=== PATIENT | male | born 1995 | race African-American/Black ===

== ENCOUNTER 2019-11-25 00:42 | Emergency (ER) | payer MEDICAID, OTHER ==
[~2019-11-25] VITALS: Ht 167.6 cm; Wt 54.5 kg
[2019-11-25 04:15] VITALS: BP 120/79
[2019-11-25] MEDS ORDERED: LORazepam 1 MG TABLET PO ONE (04:45)
== END 2019-11-25 05:23 | disposition home or self-care (01) ==
LOC: EMS 00:42
DX: F10.129 Alcohol abuse with intoxication, unspecified (principal); F12.90 Cannabis use, unspecified, uncomplicated; F17.210 Nicotine dependence, cigarettes, uncomplicated; Y90.9 Presence of alcohol in blood, level not specified

== ENCOUNTER 2020-07-07 04:14 | Emergency (ER) | payer SELFPAY ==
[~2020-07-07] VITALS: Ht 170.2 cm; Wt 52.3 kg
[2020-07-07 05:54] LABS: BASOPHILS % (AUTO) 0.3 % (0.0-2.0); EOSINOPHILS % (AUTO) 0.9 % (1.0-6.0); HEMATOCRIT 41.6 % (41-53); HEMOGLOBIN 14.4 g/dL (13.5-17.5); LYMPHOCYTES # (AUTO) 1.5 K/uL (1.0-4.8); LYMPHOCYTES % (AUTO) 47.2 % (22.0-44.0); MEAN CORPUSCULAR HEMOGLOBIN 34.6 pg (26.0-34.0); MEAN CORPUSCULAR HGB CONC 34.7 G/dL (31.0-37.0); MEAN CORPUSCULAR VOLUME 100 fL (80-100); MONOCYTES # (AUTO) 0.3 K/uL (0.1-1.0); MONOCYTES % (AUTO) 11.1 % (2.0-9.0); NEUTROPHILS # (AUTO) 1.3 K/uL (1.8-7.7); NEUTROPHILS % (AUTO) 40.5 % (40.0-70.0); PLATELET COUNT (AUTO) 251 K/uL (150-450); RED BLOOD CELL COUNT(AUTO) 4.18 MIL/uL (4.50-5.90); RED CELL DISTRIBUTION WIDTH 14.5 % (11.5-14.5)
[2020-07-07 05:55] LABS: ALANINE AMINOTRANSFERASE 62 U/L (12-78); ALBUMIN 4.7 g/dL (3.4-5.0); ALKALINE PHOSPHATASE 62 U/L (46-116); ANION GAP 6 mmol/L (8-16); ASPARTATE AMINOTRANSFERASE 83 U/L (15-37); CALCIUM, TOTAL 9.1 mg/dL (8.8-10.5); CARBON DIOXIDE 34 mmol/L (22-29); CHLORIDE 101 mmol/L (98-107); CREATININE 1.01 mg/dL (0.60-1.30); GLOMERULAR FILTR. RATE CALC > 60 mL/min (>60); GLUCOSE,RANDOM 111 mg/dL (70-110); POTASSIUM 3.3 mmol/L (3.5-5.1); SODIUM SERUM 141 mmol/L (136-145); UREA NITROGEN, BLOOD 5 mg/dL (7-18)
[2020-07-07 05:56] LABS: AMPHET/METH SCREEN,URINE POSITIVE (NEGATIVE); BARBITURATE SCREEN, URINE NEGATIVE (NEGATIVE); BENZODIAZEPINES SCREEN,URINE NEGATIVE (NEGATIVE); CANNABINOID SCREEN,URINE POSITIVE (NEGATIVE); COCAINE SCREEN,URINE NEGATIVE (NEGATIVE); METHADONE SCREEN, URINE NEGATIVE (NEGATIVE); OPIATE SCREEN,URINE NEGATIVE (NEGATIVE)
[2020-07-07 06:07] LABS: PHENCYCLIDINE SCREEN,URINE NEGATIVE (NEGATIVE)
[2020-07-07 08:47] VITALS: BP 129/70
== END 2020-07-07 09:23 | disposition home or self-care (01) ==
LOC: EMS 04:14
DX: F15.10 Other stimulant abuse, uncomplicated (principal); F12.90 Cannabis use, unspecified, uncomplicated; F17.210 Nicotine dependence, cigarettes, uncomplicated
CPT/HCPCS: 36415; 80053; 80307; 85025; 99283; G0480

== ENCOUNTER 2022-02-27 16:59 | Inpatient (IN) | payer MEDICAID, OTHER ==
[~2022-02-27] VITALS: Ht 165.1 cm; Wt 51.7 kg
[2022-02-27] MEDS ORDERED: LORazepam 2 MG TABLET PO PRN (20:00)
[2022-02-27] MEDS ORDERED: ZOLPIDEM TARTRATE 10 MG TABLET PO PRN (20:00)
[2022-02-27] MEDS ORDERED: OLANZapine 5 MG RAPDIS TABLET PO PRN (20:00)
[2022-02-27 20:05] LABS: COVID AG,FIA SOURCE NASOPHARYNGEAL
[2022-02-27 20:47] LABS: BASOPHILS % (AUTO) 1.6 % (0.0-2.0); EOSINOPHILS % (AUTO) 1.5 % (1.0-6.0); HEMATOCRIT 41.8 % (41-53); HEMOGLOBIN 14.7 g/dL (13.5-17.5); LYMPHOCYTES # (AUTO) 1.6 K/uL (1.0-4.8); LYMPHOCYTES % (AUTO) 53.2 % (22.0-44.0); MEAN CORPUSCULAR HEMOGLOBIN 34.5 pg (26.0-34.0); MEAN CORPUSCULAR HGB CONC 35.2 G/dL (31.0-37.0); MEAN CORPUSCULAR VOLUME 98 fL (80-100); MONOCYTES # (AUTO) 0.2 K/uL (0.1-1.0); MONOCYTES % (AUTO) 7.6 % (2.0-9.0); NEUTROPHILS # (AUTO) 1.1 K/uL (1.8-7.7); NEUTROPHILS % (AUTO) 36.1 % (40.0-70.0); PLATELET COUNT (AUTO) 141 K/uL (150-450); RED BLOOD CELL COUNT(AUTO) 4.27 MIL/uL (4.50-5.90); RED CELL DISTRIBUTION WIDTH 15.8 % (11.5-14.5)
[2022-02-27 20:48] LABS: ANION GAP 13 mmol/L (8-16); CALCIUM, TOTAL 9.1 mg/dL (8.8-10.5); CARBON DIOXIDE 27 mmol/L (22-29); CHLORIDE 96 mmol/L (98-107); CREATININE 0.94 mg/dL (0.60-1.30); GLOMERULAR FILTR. RATE CALC > 60 mL/min (>60); GLUCOSE,RANDOM 117 mg/dL (70-110); POTASSIUM 4.1 mmol/L (3.5-5.1); SODIUM SERUM 136 mmol/L (136-145); UREA NITROGEN, BLOOD 8 mg/dL (7-18)
[2022-02-27 20:54] LABS: ALANINE AMINOTRANSFERASE 523 U/L (12-78); ALBUMIN 3.9 g/dL (3.4-5.0); ALKALINE PHOSPHATASE 173 U/L (46-116); ASPARTATE AMINOTRANSFERASE 864 U/L (15-37); BILIRUBIN,TOTAL 1.2 mg/dL (0.1-1.0); TOTAL PROTEIN, SERUM 7.5 g/dL (6.4-8.2)
[2022-02-27 21:01] LABS: APPEARANCE,URINE CLEAR (CLEAR); BILIRUBIN,URINE NEGATIVE (NEGATIVE); GLUCOSE, URINE (UA) NEGATIVE (NEGATIVE); KETONES,URINE NEGATIVE (NEGATIVE); LEUKOCYTE ESTERASE ,URINE NEGATIVE (NEGATIVE); NITRATE,URINE NEGATIVE (NEGATIVE); OCCULT BLOOD,URINE SMALL (NEGATIVE); PH,URINE 5.5 (5.0-8.0); PROTEIN,URINE NEGATIVE (NEGATIVE); SPECIFIC GRAVITIY, URINE 1.019 (1.003-1.030); UROBILINOGEN,URINE <=1.0 mg/dL (<=1.0)
[2022-02-27 21:09] LABS: AMPHET/METH SCREEN,URINE NEGATIVE (NEGATIVE); BARBITURATE SCREEN, URINE NEGATIVE (NEGATIVE); BENZODIAZEPINES SCREEN,URINE NEGATIVE (NEGATIVE); CANNABINOID SCREEN,URINE NEGATIVE (NEGATIVE); COCAINE SCREEN,URINE NEGATIVE (NEGATIVE); METHADONE SCREEN, URINE NEGATIVE (NEGATIVE); OPIATE SCREEN,URINE NEGATIVE (NEGATIVE); PHENCYCLIDINE SCREEN,URINE NEGATIVE (NEGATIVE)
[2022-02-27 21:15] LABS: BACTERIA,URINE None Seen /HPF (None Seen); RBC,URINE 0-2 /HPF (0-2); WBC,URINE None Seen /HPF (0-5)
[2022-02-28] VITALS (9 sets, daily range): BP systolic 108–123; BP diastolic 66–82
[2022-02-28] MEDS ORDERED: MAGNESIUM HYDROXIDE SUSPENSION 30 ML UDCUP PO PRN (10:00)
[2022-02-28] MEDS ORDERED: HydrOXYzine PAMOATE 50 MG CAPSULE PO PRN (10:00)
[2022-02-28] MEDS ORDERED: LOPERAMIDE HCL 2 MG CAPSULE PO PRN (10:00)
[2022-02-28] MEDS ORDERED: CYANOCOBALAMIN 1,000 MCG/ML VIAL IM ONE (10:00)
[2022-02-28] MEDS ORDERED: MAG HYDROX/AL HYDROX/SIMETH ES 30 ML SUSPENSION UDCUP PO PRN (10:00)
[2022-02-28] MEDS ORDERED: ACETAMINOPHEN 325 MG TABLET PO PRN (10:00)
[2022-02-28] MEDS ORDERED: PROMETHAZINE HCL 25 MG TABLET PO PRN (10:00)
[2022-02-28] MEDS ORDERED: TUBERCULIN, PURIFIED PROTEIN DERIVATIVE 5 TU/0.1 ML SYRINGE ID ONE (10:00)
[2022-02-28] MEDS ORDERED: GuaiFENesin/D-METHORPHAN [SUGAR-FREE] 200-20MG/10 ML SYRUP UDCUP PO PRN (10:00)
[2022-02-28] MEDS ORDERED: LORazepam 2 MG TABLET PO PRN (10:00)
[2022-02-28] MEDS: THIAMINE 100 MG TABLET PO SCH (16:35)
[2022-02-28] MEDS: MELATONIN 5 MG TABLET PO SCH (20:28)
[2022-02-28] MEDS ORDERED: MIRTAZAPINE 15 MG TABLET PO SCH (21:00)
[2022-03-01] VITALS (10 sets, daily range): BP systolic 110–117; BP diastolic 66–79
[2022-03-01] MEDS ORDERED: LORazepam 2 MG TABLET PO PRN (07:00)
[2022-03-01] MEDS: NALTREXONE HCL 50 MG TABLET PO SCH (09:23)
[2022-03-01] MEDS: THIAMINE 100 MG TABLET PO SCH ×2 (09:23→17:15)
[2022-03-01] MEDS: MULTIVITAMINS WITH MINERALS, THERAPEUTIC TABLET PO SCH (09:23)
[2022-03-01] MEDS: FOLIC ACID 1 MG TABLET PO SCH (09:24)
[2022-03-01] MEDS: LORazepam 2 MG TABLET PO SCH ×4 (09:24→20:26)
[2022-03-01] MEDS: OMEGA-3/DHA/EPA/FISH OIL 1,000 MG CAPSULE PO SCH (09:24)
[2022-03-01] MEDS: MIRTAZAPINE 30 MG TABLET PO SCH (20:26)
[2022-03-01] MEDS: MELATONIN 5 MG TABLET PO SCH (20:26)
[2022-03-02] VITALS: BP 105/75
[2022-03-02 08:11] LABS: BASOPHILS % (AUTO) 0.7 % (0.0-2.0); EOSINOPHILS % (AUTO) 1.4 % (1.0-6.0); HEMATOCRIT 39.6 % (41-53); HEMOGLOBIN 13.4 g/dL (13.5-17.5); LYMPHOCYTES # (AUTO) 1.4 K/uL (1.0-4.8); LYMPHOCYTES % (AUTO) 39.5 % (22.0-44.0); MEAN CORPUSCULAR HGB CONC 33.8 G/dL (31.0-37.0); MEAN CORPUSCULAR VOLUME 101 fL (80-100); MONOCYTES # (AUTO) 0.4 K/uL (0.1-1.0); NEUTROPHILS # (AUTO) 1.6 K/uL (1.8-7.7); NEUTROPHILS % (AUTO) 46.4 % (40.0-70.0); PLATELET COUNT (AUTO) 123 K/uL (150-450); RED BLOOD CELL COUNT(AUTO) 3.94 MIL/uL (4.50-5.90); RED CELL DISTRIBUTION WIDTH 16.1 % (11.5-14.5)
[2022-03-02 08:20] VITALS: BP 94/54
[2022-03-02 08:22] LABS: HEMOGLOBIN A1C 5.6 % (3.8-5.6)
[2022-03-02 08:42] LABS: ALANINE AMINOTRANSFERASE 306 U/L (12-78); ALBUMIN 3.5 g/dL (3.4-5.0); ALKALINE PHOSPHATASE 148 U/L (46-116); ANION GAP 10 mmol/L (8-16); ASPARTATE AMINOTRANSFERASE 229 U/L (15-37); BILIRUBIN,TOTAL 0.7 mg/dL (0.1-1.0); CALCIUM, TOTAL 9.2 mg/dL (8.8-10.5); CARBON DIOXIDE 31 mmol/L (22-29); CHLORIDE 103 mmol/L (98-107); CHOL/HDL RATIO 2.6 (4.2-7.3); CHOLESTEROL 169 mg/dL (131-200); CREATININE 0.75 mg/dL (0.60-1.30); FREE T4 (FREE THYROXINE) 0.73 ng/dL (0.76-1.46); GLOMERULAR FILTR. RATE CALC > 60 mL/min (>60); GLUCOSE,RANDOM 98 mg/dL (70-110); HDL CHOLESTEROL 66 mg/dL (40-60); LDL CHOL (CALC.) 86 mg/dL (0-130); SODIUM SERUM 144 mmol/L (136-145); THYROID STIMULATING HORMONE 3.33 uIU/mL (0.36-3.74); TOTAL PROTEIN, SERUM 6.8 g/dL (6.4-8.2); TRIGLYCERIDES 83 mg/dL (15-150); UREA NITROGEN, BLOOD 10 mg/dL (7-18)
[2022-03-02] MEDS: OMEGA-3/DHA/EPA/FISH OIL 1,000 MG CAPSULE PO SCH (09:30)
[2022-03-02] MEDS: MULTIVITAMINS WITH MINERALS, THERAPEUTIC TABLET PO SCH (09:30)
[2022-03-02] MEDS: FOLIC ACID 1 MG TABLET PO SCH (09:30)
[2022-03-02] MEDS: NALTREXONE HCL 50 MG TABLET PO SCH (09:30)
[2022-03-02] MEDS: THIAMINE 100 MG TABLET PO SCH ×2 (09:30→16:33)
[2022-03-02] MEDS: LORazepam 2 MG TABLET PO SCH ×4 (09:30→20:35)
[2022-03-02 16:31] VITALS: BP 103/63
[2022-03-02 20:15] VITALS: BP 108/71
[2022-03-02] MEDS: MELATONIN 5 MG TABLET PO SCH (20:35)
[2022-03-02] MEDS: MIRTAZAPINE 30 MG TABLET PO SCH (20:35)
[2022-03-03 05:30] VITALS: BP 111/62
[2022-03-03] MEDS ORDERED: LORazepam 1 MG TABLET PO PRN (07:00)
[2022-03-03 08:08] LABS: ALBUMIN 3.4 g/dL (3.4-5.0); BILIRUBIN,DIRECT 0.2 mg/dL (0.00-0.20); BILIRUBIN,TOTAL 0.7 mg/dL (0.1-1.0); TOTAL PROTEIN, SERUM 6.9 g/dL (6.4-8.2)
[2022-03-03 08:18] VITALS: BP 112/77
[2022-03-03] MEDS: MULTIVITAMINS WITH MINERALS, THERAPEUTIC TABLET PO SCH (08:22)
[2022-03-03] MEDS: OMEGA-3/DHA/EPA/FISH OIL 1,000 MG CAPSULE PO SCH (08:22)
[2022-03-03] MEDS: FOLIC ACID 1 MG TABLET PO SCH (08:22)
[2022-03-03] MEDS: NALTREXONE HCL 50 MG TABLET PO SCH (08:22)
[2022-03-03] MEDS: THIAMINE 100 MG TABLET PO SCH ×2 (08:22→17:03)
[2022-03-03] MEDS: LORazepam 1 MG TABLET PO SCH ×4 (08:22→20:20)
[2022-03-03] MEDS ORDERED: LORazepam 0.5 MG TABLET PO PRN (14:30)
[2022-03-03 16:22] VITALS: BP 114/66
[2022-03-03] MEDS: NICOTINE 14 MG/24 HOUR PATCH TD SCH (19:30)
[2022-03-03] MEDS: MELATONIN 5 MG TABLET PO SCH (20:20)
[2022-03-03] MEDS: MIRTAZAPINE 30 MG TABLET PO SCH (20:23)
[2022-03-04 06:06] LABS: HEPATITIS A ANTIBODY TOTAL Positive (Negative); HEPATITIS C AB (EIA) <0.1 s/co ratio (0.0-0.9)
[2022-03-04 06:19] VITALS: BP 112/72
[2022-03-04] MEDS ORDERED: LORazepam 1 MG TABLET PO PRN (07:00)
[2022-03-04] MEDS: MULTIVITAMINS WITH MINERALS, THERAPEUTIC TABLET PO SCH (08:09)
[2022-03-04] MEDS: OMEGA-3/DHA/EPA/FISH OIL 1,000 MG CAPSULE PO SCH (08:09)
[2022-03-04] MEDS: NICOTINE 14 MG/24 HOUR PATCH TD SCH (08:09)
[2022-03-04] MEDS: FOLIC ACID 1 MG TABLET PO SCH (08:09)
[2022-03-04] MEDS: NALTREXONE HCL 50 MG TABLET PO SCH (08:09)
[2022-03-04] MEDS: THIAMINE 100 MG TABLET PO SCH ×2 (08:09→16:16)
[2022-03-04 08:16] VITALS: BP 110/67
[2022-03-04 16:05] VITALS: BP 108/74
[2022-03-04] MEDS: MELATONIN 5 MG TABLET PO SCH (20:12)
[2022-03-04] MEDS: MIRTAZAPINE 30 MG TABLET PO SCH (20:12)
[2022-03-05 00:49] VITALS: BP 110/69
[2022-03-05] MEDS: OMEGA-3/DHA/EPA/FISH OIL 1,000 MG CAPSULE PO SCH (08:06)
[2022-03-05] MEDS: THIAMINE 100 MG TABLET PO SCH ×2 (08:06→16:22)
[2022-03-05] MEDS: MULTIVITAMINS WITH MINERALS, THERAPEUTIC TABLET PO SCH (08:06)
[2022-03-05] MEDS: FOLIC ACID 1 MG TABLET PO SCH (08:06)
[2022-03-05] MEDS: NALTREXONE HCL 50 MG TABLET PO SCH (08:06)
[2022-03-05] MEDS: NICOTINE 14 MG/24 HOUR PATCH TD SCH (08:07)
[2022-03-05 08:32] VITALS: BP 106/60
[2022-03-05 09:56] LABS: GLUCOMETER DEV NAME(LOC) POC.BV
[2022-03-05 16:11] VITALS: BP 113/61
[2022-03-05 16:31] LABS: GLUCOMETER DEV NAME(LOC) POC.BV
[2022-03-05] MEDS: MELATONIN 5 MG TABLET PO SCH (20:10)
[2022-03-05] MEDS: MIRTAZAPINE 30 MG TABLET PO SCH (20:10)
[2022-03-06 00:54] VITALS: BP 109/70
[2022-03-06 08:14] VITALS: BP 113/66
[2022-03-06] MEDS: NICOTINE 14 MG/24 HOUR PATCH TD SCH (08:53)
[2022-03-06] MEDS: THIAMINE 100 MG TABLET PO SCH ×2 (08:53→16:30)
[2022-03-06] MEDS: FOLIC ACID 1 MG TABLET PO SCH (08:53)
[2022-03-06] MEDS: MULTIVITAMINS WITH MINERALS, THERAPEUTIC TABLET PO SCH (08:53)
[2022-03-06] MEDS: NALTREXONE HCL 50 MG TABLET PO SCH (08:53)
[2022-03-06] MEDS: OMEGA-3/DHA/EPA/FISH OIL 1,000 MG CAPSULE PO SCH (08:53)
[2022-03-06 16:27] VITALS: BP 108/65
[2022-03-06] MEDS: MELATONIN 5 MG TABLET PO SCH (21:46)
[2022-03-06] MEDS: MIRTAZAPINE 30 MG TABLET PO SCH (21:46)
[2022-03-07 00:22] VITALS: BP 108/63
[2022-03-07 03:07] LABS: HIV 1-2 SCREEN 4TH GEN W/RFLX Non Reactive (Non Reactive)
[2022-03-07 08:27] VITALS: BP 103/66
[2022-03-07] MEDS: NICOTINE 14 MG/24 HOUR PATCH TD SCH (08:38)
[2022-03-07] MEDS: NALTREXONE HCL 50 MG TABLET PO SCH (08:39)
[2022-03-07] MEDS: FOLIC ACID 1 MG TABLET PO SCH (08:39)
[2022-03-07] MEDS: OMEGA-3/DHA/EPA/FISH OIL 1,000 MG CAPSULE PO SCH (08:39)
[2022-03-07] MEDS: MULTIVITAMINS WITH MINERALS, THERAPEUTIC TABLET PO SCH (08:39)
[2022-03-07] MEDS: THIAMINE 100 MG TABLET PO SCH ×2 (08:39→16:32)
[2022-03-07 16:25] VITALS: BP 115/70
[2022-03-07] MEDS: MIRTAZAPINE 30 MG TABLET PO SCH (21:11)
[2022-03-07] MEDS: MELATONIN 5 MG TABLET PO SCH (21:12)
[2022-03-08 00:38] VITALS: BP 118/67
[2022-03-08 08:09] VITALS: BP 102/70
[2022-03-08] MEDS: NICOTINE 14 MG/24 HOUR PATCH TD SCH (08:23)
[2022-03-08] MEDS: NALTREXONE HCL 50 MG TABLET PO SCH (08:23)
[2022-03-08] MEDS: OMEGA-3/DHA/EPA/FISH OIL 1,000 MG CAPSULE PO SCH (08:23)
[2022-03-08] MEDS: MULTIVITAMINS WITH MINERALS, THERAPEUTIC TABLET PO SCH (08:23)
[2022-03-08] MEDS: FOLIC ACID 1 MG TABLET PO SCH (08:23)
[2022-03-08] MEDS: THIAMINE 100 MG TABLET PO SCH ×2 (08:23→16:29)
[2022-03-08 16:06] VITALS: BP 105/60
[2022-03-08] MEDS: MELATONIN 5 MG TABLET PO SCH (21:18)
[2022-03-08] MEDS: MIRTAZAPINE 30 MG TABLET PO SCH (21:18)
[2022-03-09 00:43] VITALS: BP 110/66
[2022-03-09] MEDS: OMEGA-3/DHA/EPA/FISH OIL 1,000 MG CAPSULE PO SCH (08:06)
[2022-03-09 08:07] VITALS: BP 100/62
[2022-03-09] MEDS: MULTIVITAMINS WITH MINERALS, THERAPEUTIC TABLET PO SCH (08:07)
[2022-03-09] MEDS: THIAMINE 100 MG TABLET PO SCH ×2 (08:07→16:08)
[2022-03-09] MEDS: FOLIC ACID 1 MG TABLET PO SCH (08:07)
[2022-03-09] MEDS: NALTREXONE HCL 50 MG TABLET PO SCH (08:07)
[2022-03-09] MEDS: NICOTINE 14 MG/24 HOUR PATCH TD SCH (08:07)
[2022-03-09 16:12] VITALS: BP 103/60
[2022-03-09] MEDS: MELATONIN 5 MG TABLET PO SCH (20:12)
[2022-03-09] MEDS: MIRTAZAPINE 15 MG TABLET PO SCH (20:12)
[2022-03-10 00:40] VITALS: BP 104/62
[2022-03-10 08:08] VITALS: BP 121/63
[2022-03-10] MEDS: FOLIC ACID 1 MG TABLET PO SCH (08:37)
[2022-03-10] MEDS: MULTIVITAMINS WITH MINERALS, THERAPEUTIC TABLET PO SCH (08:37)
[2022-03-10] MEDS: NALTREXONE HCL 50 MG TABLET PO SCH (08:37)
[2022-03-10] MEDS: THIAMINE 100 MG TABLET PO SCH (08:37)
[2022-03-10] MEDS: OMEGA-3/DHA/EPA/FISH OIL 1,000 MG CAPSULE PO SCH (08:37)
[2022-03-10] MEDS: NICOTINE 14 MG/24 HOUR PATCH TD SCH (08:43)
[2022-03-10 16:07] VITALS: BP 133/63
[2022-03-10] MEDS: MIRTAZAPINE 15 MG TABLET PO SCH (20:07)
[2022-03-10] MEDS: MELATONIN 5 MG TABLET PO SCH (20:07)
[2022-03-11 00:59] VITALS: BP 120/62
[2022-03-11 08:14] VITALS: BP 106/71
[2022-03-11] MEDS: OMEGA-3/DHA/EPA/FISH OIL 1,000 MG CAPSULE PO SCH (08:21)
[2022-03-11] MEDS: NALTREXONE HCL 50 MG TABLET PO SCH (08:21)
[2022-03-11] MEDS: MULTIVITAMINS WITH MINERALS, THERAPEUTIC TABLET PO SCH (08:21)
[2022-03-11] MEDS: NICOTINE 14 MG/24 HOUR PATCH TD SCH (08:21)
[2022-03-11 16:05] VITALS: BP 102/61
[2022-03-11] MEDS: MELATONIN 5 MG TABLET PO SCH (20:11)
[2022-03-11] MEDS: MIRTAZAPINE 15 MG TABLET PO SCH (20:12)
[2022-03-12 05:50] VITALS: BP 106/67
[2022-03-12 08:16] VITALS: BP 116/68
[2022-03-12] MEDS: NICOTINE 14 MG/24 HOUR PATCH TD SCH (08:16)
[2022-03-12] MEDS: NALTREXONE HCL 50 MG TABLET PO SCH (08:16)
[2022-03-12] MEDS: MULTIVITAMINS WITH MINERALS, THERAPEUTIC TABLET PO SCH (08:16)
[2022-03-12] MEDS: OMEGA-3/DHA/EPA/FISH OIL 1,000 MG CAPSULE PO SCH (08:16)
[2022-03-12 16:27] VITALS: BP 96/59
[2022-03-12] MEDS: MIRTAZAPINE 15 MG TABLET PO SCH (20:08)
[2022-03-12] MEDS: MELATONIN 5 MG TABLET PO SCH (20:08)
[2022-03-13 05:52] VITALS: BP 107/67
[2022-03-13] MEDS: MULTIVITAMINS WITH MINERALS, THERAPEUTIC TABLET PO SCH (08:56)
[2022-03-13 08:59] VITALS: BP 102/55
[2022-03-13] MEDS: OMEGA-3/DHA/EPA/FISH OIL 1,000 MG CAPSULE PO SCH (09:04)
[2022-03-13] MEDS: NICOTINE 14 MG/24 HOUR PATCH TD SCH (09:04)
[2022-03-13] MEDS: NALTREXONE HCL 50 MG TABLET PO SCH (09:04)
[2022-03-13 09:12] LABS: GLUCOMETER DEV NAME(LOC) POC.BV
[2022-03-13 16:09] VITALS: BP 104/62
[2022-03-13] MEDS: MIRTAZAPINE 15 MG TABLET PO SCH (20:04)
[2022-03-13] MEDS: MELATONIN 5 MG TABLET PO SCH (20:04)
[2022-03-14 00:22] VITALS: BP 103/64
[2022-03-14 08:17] VITALS: BP 110/68
[2022-03-14] MEDS: NICOTINE 14 MG/24 HOUR PATCH TD SCH (08:23)
[2022-03-14] MEDS: MULTIVITAMINS WITH MINERALS, THERAPEUTIC TABLET PO SCH (08:23)
[2022-03-14] MEDS: NALTREXONE HCL 50 MG TABLET PO SCH (08:24)
[2022-03-14] MEDS: OMEGA-3/DHA/EPA/FISH OIL 1,000 MG CAPSULE PO SCH (08:24)
[2022-03-14 16:23] VITALS: BP 99/47
[2022-03-14 19:00] VITALS: BP 116/66
[2022-03-14] MEDS: MIRTAZAPINE 15 MG TABLET PO SCH (20:13)
[2022-03-14] MEDS: MELATONIN 5 MG TABLET PO SCH (20:13)
[2022-03-15 05:33] VITALS: BP 105/62
[2022-03-15 08:07] VITALS: BP 108/69
[2022-03-15] MEDS: NALTREXONE HCL 50 MG TABLET PO SCH (08:46)
[2022-03-15] MEDS: MULTIVITAMINS WITH MINERALS, THERAPEUTIC TABLET PO SCH (08:46)
[2022-03-15] MEDS: OMEGA-3/DHA/EPA/FISH OIL 1,000 MG CAPSULE PO SCH (08:46)
[2022-03-15] MEDS: NICOTINE 14 MG/24 HOUR PATCH TD SCH (08:47)
[2022-03-15 16:32] VITALS: BP 128/70
[2022-03-15] MEDS: MELATONIN 5 MG TABLET PO SCH (20:26)
[2022-03-15] MEDS: MIRTAZAPINE 15 MG TABLET PO SCH (20:26)
[2022-03-16 00:39] VITALS: BP 119/68
[2022-03-16 08:08] VITALS: BP 106/62
[2022-03-16] MEDS: MULTIVITAMINS WITH MINERALS, THERAPEUTIC TABLET PO SCH (08:40)
[2022-03-16] MEDS: NICOTINE 14 MG/24 HOUR PATCH TD SCH (08:40)
[2022-03-16] MEDS: OMEGA-3/DHA/EPA/FISH OIL 1,000 MG CAPSULE PO SCH (08:40)
[2022-03-16] MEDS: NALTREXONE HCL 50 MG TABLET PO SCH (08:40)
[2022-03-16 17:25] VITALS: BP 102/63
[2022-03-16] MEDS: MIRTAZAPINE 15 MG TABLET PO SCH (21:08)
[2022-03-16] MEDS: MELATONIN 5 MG TABLET PO SCH (21:08)
[2022-03-17 06:08] VITALS: BP 105/64
[2022-03-17 08:18] VITALS: BP 100/60
[2022-03-17] MEDS: OMEGA-3/DHA/EPA/FISH OIL 1,000 MG CAPSULE PO SCH (08:22)
[2022-03-17] MEDS: MULTIVITAMINS WITH MINERALS, THERAPEUTIC TABLET PO SCH (08:22)
[2022-03-17] MEDS: NALTREXONE HCL 50 MG TABLET PO SCH (08:22)
[2022-03-17] MEDS: NICOTINE 14 MG/24 HOUR PATCH TD SCH (08:23)
[2022-03-17 18:00] VITALS: BP 108/70
[2022-03-17] MEDS: MELATONIN 5 MG TABLET PO SCH (20:15)
[2022-03-17] MEDS: MIRTAZAPINE 15 MG TABLET PO SCH (20:15)
[2022-03-18 06:38] VITALS: BP 99/64
[2022-03-18 08:03] VITALS: BP 104/65
[2022-03-18] MEDS: NALTREXONE HCL 50 MG TABLET PO SCH (08:50)
[2022-03-18] MEDS: NICOTINE 14 MG/24 HOUR PATCH TD SCH (08:50)
[2022-03-18] MEDS: OMEGA-3/DHA/EPA/FISH OIL 1,000 MG CAPSULE PO SCH (08:50)
[2022-03-18] MEDS: MULTIVITAMINS WITH MINERALS, THERAPEUTIC TABLET PO SCH (08:50)
[2022-03-18 16:17] VITALS: BP 105/64
[2022-03-18] MEDS: MELATONIN 5 MG TABLET PO SCH (20:07)
[2022-03-18] MEDS: MIRTAZAPINE 15 MG TABLET PO SCH (20:07)
[2022-03-19 00:28] VITALS: BP 106/63
[2022-03-19 08:35] VITALS: BP 105/58
[2022-03-19] MEDS: NICOTINE 14 MG/24 HOUR PATCH TD SCH (09:21)
[2022-03-19] MEDS: MULTIVITAMINS WITH MINERALS, THERAPEUTIC TABLET PO SCH (09:21)
[2022-03-19] MEDS: OMEGA-3/DHA/EPA/FISH OIL 1,000 MG CAPSULE PO SCH (09:21)
[2022-03-19] MEDS: NALTREXONE HCL 50 MG TABLET PO SCH (09:21)
[2022-03-19 10:21] LABS: GLUCOMETER DEV NAME(LOC) POC.BV
[2022-03-19 16:09] VITALS: BP 103/60
[2022-03-19] MEDS: MIRTAZAPINE 15 MG TABLET PO SCH (20:08)
[2022-03-19] MEDS: MELATONIN 5 MG TABLET PO SCH (20:08)
[2022-03-20 01:11] VITALS: BP 104/62
[2022-03-20 08:10] VITALS: BP 106/66
[2022-03-20] MEDS: MULTIVITAMINS WITH MINERALS, THERAPEUTIC TABLET PO SCH (08:31)
[2022-03-20] MEDS: NICOTINE 14 MG/24 HOUR PATCH TD SCH (08:31)
[2022-03-20] MEDS: OMEGA-3/DHA/EPA/FISH OIL 1,000 MG CAPSULE PO SCH (08:31)
[2022-03-20] MEDS: NALTREXONE HCL 50 MG TABLET PO SCH (08:32)
[2022-03-20 16:23] VITALS: BP 108/68
[2022-03-20] MEDS: MELATONIN 5 MG TABLET PO SCH (20:23)
[2022-03-20] MEDS: MIRTAZAPINE 15 MG TABLET PO SCH (20:24)
[2022-03-21 00:26] VITALS: BP 106/69
[2022-03-21] MEDS: MULTIVITAMINS WITH MINERALS, THERAPEUTIC TABLET PO SCH (08:34)
[2022-03-21] MEDS: OMEGA-3/DHA/EPA/FISH OIL 1,000 MG CAPSULE PO SCH (08:34)
[2022-03-21] MEDS: NALTREXONE HCL 50 MG TABLET PO SCH (08:34)
[2022-03-21] MEDS: NICOTINE 14 MG/24 HOUR PATCH TD SCH (08:34)
[2022-03-21 08:45] VITALS: BP 109/55
[2022-03-21 16:11] VITALS: BP 122/77
[2022-03-21] MEDS: MIRTAZAPINE 15 MG TABLET PO SCH (21:28)
[2022-03-21] MEDS: MELATONIN 5 MG TABLET PO SCH (21:28)
[2022-03-22 00:18] VITALS: BP 112/69
[2022-03-22 08:04] VITALS: BP 105/61
[2022-03-22] MEDS: NICOTINE 14 MG/24 HOUR PATCH TD SCH (09:07)
[2022-03-22] MEDS: OMEGA-3/DHA/EPA/FISH OIL 1,000 MG CAPSULE PO SCH (09:07)
[2022-03-22] MEDS: NALTREXONE HCL 50 MG TABLET PO SCH (09:07)
[2022-03-22] MEDS: MULTIVITAMINS WITH MINERALS, THERAPEUTIC TABLET PO SCH (09:07)
[2022-03-22 16:11] VITALS: BP 112/64
[2022-03-22 16:46] LABS: GLUCOMETER DEV NAME(LOC) POC.BV
[2022-03-22] MEDS: MIRTAZAPINE 15 MG TABLET PO SCH (21:33)
[2022-03-22] MEDS: MELATONIN 5 MG TABLET PO SCH (21:33)
[2022-03-23 00:43] VITALS: BP 117/68
[2022-03-23 08:16] VITALS: BP 106/66
[2022-03-23] MEDS: NALTREXONE HCL 50 MG TABLET PO SCH (08:16)
[2022-03-23] MEDS: OMEGA-3/DHA/EPA/FISH OIL 1,000 MG CAPSULE PO SCH (08:16)
[2022-03-23] MEDS: MULTIVITAMINS WITH MINERALS, THERAPEUTIC TABLET PO SCH (08:16)
[2022-03-23] MEDS: NICOTINE 14 MG/24 HOUR PATCH TD SCH (08:17)
[2022-03-23 16:04] VITALS: BP 106/61
[2022-03-23] MEDS: MIRTAZAPINE 15 MG TABLET PO SCH (20:12)
[2022-03-23] MEDS: MELATONIN 5 MG TABLET PO SCH (20:12)
[2022-03-24 00:29] VITALS: BP 105/62
[2022-03-24] MEDS: NICOTINE 14 MG/24 HOUR PATCH TD SCH (08:16)
[2022-03-24] MEDS: NALTREXONE HCL 50 MG TABLET PO SCH (08:16)
[2022-03-24] MEDS: MULTIVITAMINS WITH MINERALS, THERAPEUTIC TABLET PO SCH (08:16)
[2022-03-24] MEDS: OMEGA-3/DHA/EPA/FISH OIL 1,000 MG CAPSULE PO SCH (08:16)
[2022-03-24 08:17] VITALS: BP 98/60
[2022-03-24 16:13] VITALS: BP 102/60
[2022-03-24] MEDS: MELATONIN 5 MG TABLET PO SCH (20:27)
[2022-03-24] MEDS: MIRTAZAPINE 15 MG TABLET PO SCH (20:27)
[2022-03-25 00:15] VITALS: BP 110/68
[2022-03-25] MEDS: MULTIVITAMINS WITH MINERALS, THERAPEUTIC TABLET PO SCH (08:16)
[2022-03-25] MEDS: OMEGA-3/DHA/EPA/FISH OIL 1,000 MG CAPSULE PO SCH (08:16)
[2022-03-25] MEDS: NICOTINE 14 MG/24 HOUR PATCH TD SCH (08:16)
[2022-03-25] MEDS: NALTREXONE HCL 50 MG TABLET PO SCH (08:16)
[2022-03-25 08:17] VITALS: BP 104/68
[2022-03-25 16:12] VITALS: BP 99/61
[2022-03-25] MEDS: MIRTAZAPINE 15 MG TABLET PO SCH (20:04)
[2022-03-25] MEDS: MELATONIN 5 MG TABLET PO SCH (20:04)
[2022-03-26 00:36] VITALS: BP 101/62
[2022-03-26 08:08] VITALS: BP 109/69
[2022-03-26] MEDS: NALTREXONE HCL 50 MG TABLET PO SCH (08:15)
[2022-03-26] MEDS: OMEGA-3/DHA/EPA/FISH OIL 1,000 MG CAPSULE PO SCH (08:15)
[2022-03-26] MEDS: MULTIVITAMINS WITH MINERALS, THERAPEUTIC TABLET PO SCH (08:15)
[2022-03-26] MEDS: NICOTINE 14 MG/24 HOUR PATCH TD SCH (08:15)
[2022-03-26 16:17] VITALS: BP 99/64
[2022-03-26] MEDS: MIRTAZAPINE 15 MG TABLET PO SCH (20:49)
[2022-03-26] MEDS: MELATONIN 5 MG TABLET PO SCH (20:49)
[2022-03-27 00:29] VITALS: BP 101/67
[2022-03-27] MEDS: NALTREXONE HCL 50 MG TABLET PO SCH (08:20)
[2022-03-27] MEDS: MULTIVITAMINS WITH MINERALS, THERAPEUTIC TABLET PO SCH (08:20)
[2022-03-27] MEDS: NICOTINE 14 MG/24 HOUR PATCH TD SCH (08:20)
[2022-03-27] MEDS: OMEGA-3/DHA/EPA/FISH OIL 1,000 MG CAPSULE PO SCH (08:20)
[2022-03-27 08:48] VITALS: BP 105/62
[2022-03-27 16:11] VITALS: BP 120/74
[2022-03-27] MEDS: MIRTAZAPINE 15 MG TABLET PO SCH (20:09)
[2022-03-27] MEDS: MELATONIN 5 MG TABLET PO SCH (20:09)
[2022-03-28 00:15] VITALS: BP 118/72
[2022-03-28] MEDS: NICOTINE 14 MG/24 HOUR PATCH TD SCH (08:53)
[2022-03-28] MEDS: MULTIVITAMINS WITH MINERALS, THERAPEUTIC TABLET PO SCH (08:53)
[2022-03-28] MEDS: OMEGA-3/DHA/EPA/FISH OIL 1,000 MG CAPSULE PO SCH (08:53)
[2022-03-28] MEDS: NALTREXONE HCL 50 MG TABLET PO SCH (08:58)
[2022-03-28 09:17] VITALS: BP 116/72
[2022-03-28 16:55] VITALS: BP 109/65
[2022-03-28] MEDS: MIRTAZAPINE 15 MG TABLET PO SCH (20:37)
[2022-03-28] MEDS: MELATONIN 5 MG TABLET PO SCH (20:37)
[2022-03-29 00:24] VITALS: BP 103/62
[2022-03-29 08:17] VITALS: BP 106/67
[2022-03-29] MEDS: NICOTINE 14 MG/24 HOUR PATCH TD SCH (08:25)
[2022-03-29] MEDS: MULTIVITAMINS WITH MINERALS, THERAPEUTIC TABLET PO SCH (08:25)
[2022-03-29] MEDS: NALTREXONE HCL 50 MG TABLET PO SCH (08:25)
[2022-03-29] MEDS: OMEGA-3/DHA/EPA/FISH OIL 1,000 MG CAPSULE PO SCH (08:25)
[2022-03-29 09:21] LABS: GLUCOMETER DEV NAME(LOC) POC.BV
[2022-03-29 16:20] VITALS: BP 106/61
[2022-03-29] MEDS: MIRTAZAPINE 15 MG TABLET PO SCH (20:41)
[2022-03-29] MEDS: MELATONIN 5 MG TABLET PO SCH (20:41)
[2022-03-30 00:20] VITALS: BP 107/64
[2022-03-30 08:18] VITALS: BP 106/65
[2022-03-30] MEDS: OMEGA-3/DHA/EPA/FISH OIL 1,000 MG CAPSULE PO SCH (08:43)
[2022-03-30] MEDS: NICOTINE 14 MG/24 HOUR PATCH TD SCH (08:44)
[2022-03-30] MEDS: MULTIVITAMINS WITH MINERALS, THERAPEUTIC TABLET PO SCH (08:44)
[2022-03-30] MEDS: NALTREXONE HCL 50 MG TABLET PO SCH (08:44)
[2022-03-30 16:26] VITALS: BP 112/60
[2022-03-30] MEDS: MIRTAZAPINE 15 MG TABLET PO SCH (20:10)
[2022-03-30] MEDS: MELATONIN 5 MG TABLET PO SCH (20:10)
[2022-03-31 00:22] VITALS: BP 109/63
[2022-03-31] MEDS: NICOTINE 14 MG/24 HOUR PATCH TD SCH (08:17)
[2022-03-31] MEDS: OMEGA-3/DHA/EPA/FISH OIL 1,000 MG CAPSULE PO SCH (08:17)
[2022-03-31] MEDS: MULTIVITAMINS WITH MINERALS, THERAPEUTIC TABLET PO SCH (08:17)
[2022-03-31] MEDS: NALTREXONE HCL 50 MG TABLET PO SCH (08:17)
[2022-03-31 08:24] VITALS: BP 107/65
[2022-03-31] MEDS ORDERED: GABAPENTIN 300 MG CAPSULE PO PRN (14:30)
[2022-03-31 16:08] VITALS: BP 101/60
[2022-03-31] MEDS: MELATONIN 5 MG TABLET PO SCH (21:00)
[2022-03-31] MEDS: MIRTAZAPINE 15 MG TABLET PO SCH (21:01)
[2022-04-01 00:17] VITALS: BP 103/62
[2022-04-01 08:20] VITALS: BP 104/55
[2022-04-01] MEDS: OMEGA-3/DHA/EPA/FISH OIL 1,000 MG CAPSULE PO SCH (08:24)
[2022-04-01] MEDS: NICOTINE 14 MG/24 HOUR PATCH TD SCH (08:24)
[2022-04-01] MEDS: NALTREXONE HCL 50 MG TABLET PO SCH (08:24)
[2022-04-01] MEDS: MULTIVITAMINS WITH MINERALS, THERAPEUTIC TABLET PO SCH (08:24)
[2022-04-01 16:09] VITALS: BP 103/60
[2022-04-01] MEDS: MELATONIN 5 MG TABLET PO SCH (20:19)
[2022-04-01] MEDS: MIRTAZAPINE 15 MG TABLET PO SCH (20:20)
[2022-04-02 00:28] VITALS: BP 113/71
[2022-04-02 08:50] VITALS: BP 100/64
[2022-04-02] MEDS: MULTIVITAMINS WITH MINERALS, THERAPEUTIC TABLET PO SCH (09:27)
[2022-04-02] MEDS: OMEGA-3/DHA/EPA/FISH OIL 1,000 MG CAPSULE PO SCH (09:27)
[2022-04-02] MEDS: NICOTINE 14 MG/24 HOUR PATCH TD SCH (09:27)
[2022-04-02] MEDS: NALTREXONE HCL 50 MG TABLET PO SCH (09:27)
[2022-04-02 16:16] VITALS: BP 112/71
[2022-04-02] MEDS: MELATONIN 5 MG TABLET PO SCH (20:38)
[2022-04-02] MEDS: MIRTAZAPINE 15 MG TABLET PO SCH (20:38)
[2022-04-03 00:42] VITALS: BP 109/68
[2022-04-03 08:20] VITALS: BP 119/68
[2022-04-03] MEDS: MULTIVITAMINS WITH MINERALS, THERAPEUTIC TABLET PO SCH (09:00)
[2022-04-03] MEDS: OMEGA-3/DHA/EPA/FISH OIL 1,000 MG CAPSULE PO SCH (09:05)
[2022-04-03] MEDS: NALTREXONE HCL 50 MG TABLET PO SCH (09:05)
[2022-04-03] MEDS: NICOTINE 14 MG/24 HOUR PATCH TD SCH (09:05)
[2022-04-03 16:35] VITALS: BP 109/81
[2022-04-03] MEDS: MELATONIN 5 MG TABLET PO SCH (20:46)
[2022-04-03] MEDS: MIRTAZAPINE 15 MG TABLET PO SCH (20:46)
[2022-04-04 07:22] VITALS: BP 110/80
[2022-04-04] MEDS: NALTREXONE HCL 50 MG TABLET PO SCH (08:39)
[2022-04-04] MEDS: OMEGA-3/DHA/EPA/FISH OIL 1,000 MG CAPSULE PO SCH (08:39)
[2022-04-04] MEDS: MULTIVITAMINS WITH MINERALS, THERAPEUTIC TABLET PO SCH (08:39)
[2022-04-04] MEDS: NICOTINE 14 MG/24 HOUR PATCH TD SCH (08:40)
[2022-04-04 08:48] VITALS: BP 99/62
[2022-04-04 16:10] VITALS: BP 105/62
[2022-04-04] MEDS ORDERED: OMEG-108 PO (20:44)
[2022-04-04] MEDS ORDERED: MIRT-89 PO (20:44)
[2022-04-04] MEDS ORDERED: MELA5TAB40 PO (20:44)
[2022-04-04] MEDS ORDERED: NALT50TA PO (20:44)
[2022-04-04] MEDS: MELATONIN 5 MG TABLET PO SCH (20:53)
[2022-04-04] MEDS: MIRTAZAPINE 15 MG TABLET PO SCH (20:53)
[2022-04-05 05:52] VITALS: BP 108/60
[2022-04-05 08:15] VITALS: BP 118/70
[2022-04-05] MEDS: MULTIVITAMINS WITH MINERALS, THERAPEUTIC TABLET PO SCH (08:16)
[2022-04-05] MEDS: OMEGA-3/DHA/EPA/FISH OIL 1,000 MG CAPSULE PO SCH (08:16)
[2022-04-05] MEDS: NICOTINE 14 MG/24 HOUR PATCH TD SCH (08:18)
[2022-04-05] MEDS: NALTREXONE HCL 50 MG TABLET PO SCH (08:19)
[2022-04-05 13:31] LABS: GLUCOMETER DEV NAME(LOC) POC.BV
== END 2022-04-05 14:45 | disposition home or self-care (01) | DRG 751 ==
LOC: EMS 16:59 → B2X 02-28 02:00 → B2S 02-28 03:41
PROVIDERS: ADMIT Psychiatry & Neurology Psychiatry; ATTEND Psychiatry & Neurology Psychiatry
DX: F33.2 Major depressive disorder, recurrent severe without psychotic features (principal); F25.1 Schizoaffective disorder, depressive type; K74.60 Unspecified cirrhosis of liver; R45.851 Suicidal ideations; K75.9 Inflammatory liver disease, unspecified; F41.9 Anxiety disorder, unspecified; F10.229 Alcohol dependence with intoxication, unspecified; G47.00 Insomnia, unspecified; F12.90 Cannabis use, unspecified, uncomplicated; Z20.822 Contact with and (suspected) exposure to COVID-19; Y90.9 Presence of alcohol in blood, level not specified; Z55.9 Problems related to education and literacy, unspecified; Z59.00 Homelessness unspecified; Z63.9 Problem related to primary support group, unspecified; Z65.3 Problems related to other legal circumstances; Z87.891 Personal history of nicotine dependence; Z63.4 Disappearance and death of family member
CPT/HCPCS: 80053; 80061; 80074; 80076; 81001; 82140; 83036; 84439; 84443; 85025; 86592; 86704; 86706; 86707; 86708; 86709; 87081; 87340; 87350; 87389; 87517; 99285; G0480; J3420; Q9967